=== PATIENT | female | born 1995 | race African-American/Black ===

== ENCOUNTER 2024-11-18 12:39 | Emergency (ER) | payer SELFPAY ==
[~2024-11-18] VITALS: Ht 172.7 cm; Wt 76.0 kg
[2024-11-18 12:41] VITALS: O2SAT 96
[2024-11-18] MEDS ORDERED: LIDO700A15 TP (13:42)
[2024-11-18] MEDS ORDERED: ACET-2708 MT (13:42)
[2024-11-18] MEDS: ACETAMINOPHEN 325MG TABLET PO ONE (14:45)
[2024-11-18 16:01] VITALS: BP 112/77; PULSE 65; RESP 18; TEMP 36.8; O2SAT 100
== END 2024-11-18 16:03 | disposition home or self-care (01) ==
LOC: ER 12:39
DX: M79.605 Pain in left leg (principal); Z79.899 Other long term (current) drug therapy; W19.XXXA Unspecified fall, initial encounter; Y93.89 Activity, other specified; Y92.89 Other specified places as the place of occurrence of the external cause; Y99.8 Other external cause status
CPT/HCPCS: 73552; 73562; 81025; 99284